=== PATIENT | female | born 1985 ===

== ENCOUNTER 2025-01-16 11:15 | Inpatient (IN) | payer OTHER ==
[~2025-01-16] VITALS: Ht 170.2 cm; Wt 4.1 kg
[2025-01-16 12:25] LABS: HEMATOCRIT 32.7 % (36.0-45.00); HEMOGLOBIN 10.5 g/dL (12.0-15.00); MEAN CELL VOLUME 76.2 fL (80.00-100.00); MEAN CORPUSCULAR HEMOGLOBIN 24.6 pg (27.00-32.0); MEAN CORPUSCULAR HGB CONC 32.2 g/dl (32.0-36.0); PLATELET COUNT 243 K/uL (150-450); RED BLOOD COUNT 4.29 M/uL (4.00-6.00)
[2025-01-16 12:50] LABS: INR 0.94; PARTIAL THROMBOPLASTIN TIME 23.1 SECONDS (22.0-34.0); PROTHROMBIN TIME 10.3 SECONDS (9.0-11.5)
[2025-01-16 12:55] LABS: URINE APPEARANCE Clear; URINE BILIRRUBIN Negative (NEGATIVE); URINE BLOOD Negative; URINE COLOR Yellow; URINE GLUCOSE Negative (NEGATIVE); URINE KETONE Negative (NEGATIVE); URINE LEUKOCYTE Small; URINE NITRATE Negative; URINE PROTEIN Negative (NEGATIVE); URINE UROBILINOGEN 0.2 E.U./dl
[2025-01-16 12:56] LABS: URINE BACTERIA 3335.4 uL (0.0-1933); URINE EPITHELIAL CELLS 82.7 uL (0.0-38.8); URINE RBC 14.1 uL (0.0-20.8); URINE WBC 47.9 uL (0.0-23.2)
[2025-01-16 13:06] LABS: ALBUMIN 2.9 gm/dL (3.4-5.0); BILIRUBIN TOTAL 0.66 mg/dL (0.3-1.2); CALCIUM 9.6 mg/dL (8.5-10.1); CREATININE SERUM 0.68 mg/dL (0.55-1.02); GFR 96.83; GLOBULINA 3.8 G/DL (2.4-3.5); POTASSIUM 4.44 mEq/L (3.5-5.1); TOTAL PROTEIN 6.7 gm/dL (6.4-8.2)
[2025-01-16 13:08] LABS: URINE CAST 0.14 uL (0.0-1.40)
[2025-01-24] MEDS ORDERED: VITATRUE COMBO1 EACH PO (08:06)
[2025-01-24 08:07] VITALS: BP 127/85
[2025-01-24] MEDS ORDERED: CITRIC ACID/SODIUM CITRATE 30 ML BLIST.PACK PO ONE (10:55)
[2025-01-24] MEDS ORDERED: CEFAZOLIN SODIUM 1,000 MG VIAL ONE (10:56)
[2025-01-24] MEDS ORDERED: ERYTHROMYCIN BASE OPHT 1GM EACH TUBE OP ONE (11:36)
[2025-01-24] MEDS ORDERED: OXYTOCIN 10 UNITS/ML VIAL ONE ×2 (11:36→14:09)
[2025-01-24] MEDS ORDERED: KETOROLAC TROMETHAMINE 30 MG VIAL IV SCH (12:21)
[2025-01-24] MEDS ORDERED: RINGERS SOLUTION,LACTATED 1,000 ML IV SCH (12:30)
[2025-01-24] MEDS ORDERED: MORPHINE SULFATE 4 MG/ML CARTRIDGE IV PRN (12:30)
[2025-01-24] MEDS ORDERED: OXYTOCIN 1,000 ML IV ONE (12:30)
[2025-01-24] MEDS ORDERED: MORPHINE SULFATE 4 MG/ML VIAL IV ONE (13:00)
[2025-01-24] MEDS ORDERED: KETOROLAC TROMETHAMINE 30 MG VIAL IV ONE (13:30)
[2025-01-24] MEDS ORDERED: KETOROLAC TROMETHAMINE 30 MG VIAL ONE (13:48)
[2025-01-24 15:11] VITALS: BP 131/87
[2025-01-24] MEDS ORDERED: SIMETHICONE 125 MG CAPSULE PO SCH (17:00)
[2025-01-24] MEDS ORDERED: GABAPENTIN 300 MG CAPSULE PO SCH (17:00)
[2025-01-24] MEDS ORDERED: ACETAMINOPHEN 500 MG GEL..CAP PO SCH (18:00)
[2025-01-24] MEDS ORDERED: ONDANSETRON HCL 2 MG/ML VIAL IV SCH (18:00)
[2025-01-24 20:00] VITALS: BP 124/81
[2025-01-25 01:02] VITALS: BP 119/82
[2025-01-25 06:46] LABS: MEAN CELL VOLUME 74.9 fL (80.00-100.00); MEAN CORPUSCULAR HGB CONC 32.6 g/dl (32.0-36.0); PLATELET COUNT 153 K/uL (150-450); RED BLOOD COUNT 2.98 M/uL (4.00-6.00); RED CELL DISTRIBUTION WIDTH 15.4 % (11.5-14.5)
[2025-01-25 07:17] LABS: MEAN CORPUSCULAR HEMOGLOBIN 24.4 pg (27.00-32.0)
[2025-01-25 07:21] LABS: HEMOGLOBIN 7.3 g/dL (12.0-15.00)
[2025-01-25 07:22] LABS: HEMATOCRIT 22.4 % (36.0-45.00)
[2025-01-25 08:00] VITALS: BP 130/80
[2025-01-25] MEDS ORDERED: OxyCODONE HCL 5 MG TABLET (ROXICODONE) PO PRN (08:00)
[2025-01-25] MEDS ORDERED: KETOROLAC TROMETHAMINE 10 MG TABLET PO SCH (08:00)
[2025-01-25] MEDS ORDERED: DOCUSATE SODIUM 100MG CAP PO SCH (09:00)
[2025-01-25 15:53] VITALS: BP 129/89
[2025-01-25 19:50] VITALS: BP 119/83
[2025-01-26 00:32] VITALS: BP 117/79
[2025-01-26 03:22] LABS: HEMATOCRIT 26.4 % (36.0-45.00); HEMOGLOBIN 8.6 g/dL (12.0-15.00); MEAN CELL VOLUME 79.2 fL (80.00-100.00); MEAN CORPUSCULAR HEMOGLOBIN 25.7 pg (27.00-32.0); MEAN CORPUSCULAR HGB CONC 32.7 g/dl (32.0-36.0); PLATELET COUNT 163 K/uL (150-450); RED BLOOD COUNT 3.34 M/uL (4.00-6.00)
[2025-01-26 08:00] VITALS: BP 126/85
[2025-01-26] MEDS ORDERED: SOD FERRIC GLUC COMPLX/SUCROSE 125 MG in 0.9 % SODIUM CHLORIDE 100 ML IV SCH (09:00)
[2025-01-26] MEDS ORDERED: IRON FUM,PS/FOLIC/BCOMP,C NO.9 1 CAP CAPSULE PO SCH (09:00)
[2025-01-26 16:46] VITALS: BP 129/81
[2025-01-27 00:13] VITALS: BP 100/67
[2025-01-27 09:08] VITALS: BP 127/69
[2025-01-27] MEDS ORDERED: KETO10TA2 PO (09:35)
[2025-01-27] MEDS ORDERED: OXYCODONE HCL5 MG PO (09:36)
== END 2025-01-27 11:09 | disposition home or self-care (01) | DRG 787 ==
LOC: O/R 01-24 06:58 → OB/GYN 01-24 06:58 → LDR 01-24 11:15 → OB/GYN 01-24 12:55 → LDR 01-24 13:15 → OB/GYN 01-24 14:36
PROVIDERS: ADMIT Obstetrics & Gynecology; ATTEND Obstetrics & Gynecology
PROC: 4A1HXCZ Monitoring of Products of Conception, Cardiac Rate, External Approach (ICD-10-PCS; 2025-01-24)
PROC: 10D00Z1 Extraction of Products of Conception, Low, Open Approach (ICD-10-PCS; principal; 2025-01-24 13:15)
PROC: 30233N1 Transfusion of Nonautologous Red Blood Cells into Peripheral Vein, Percutaneous Approach (ICD-10-PCS; 2025-01-25)
DX: O32.1XX0 Maternal care for breech presentation, not applicable or unspecified (principal); O36.63X0 Maternal care for excessive fetal growth, third trimester, not applicable or unspecified; D62 Acute posthemorrhagic anemia; O99.02 Anemia complicating childbirth; Z3A.39 39 weeks gestation of pregnancy; Z37.0 Single live birth

== ENCOUNTER 2025-01-30 16:07 | Inpatient (IN) | payer OTHER ==
[~2025-01-30] VITALS: Ht 170.2 cm; Wt 93.9 kg
[2025-01-30 16:00] VITALS: BP 150/90
[~2025-01-30 16:07] MED LIST: KETO10TA2 PO; MAGNESIUM SULFATE IN WATER 0.04 GM/ML IV.SOLN IV ONE; OXYCODONE HCL5 MG PO; VITATRUE COMBO1 EACH PO
[2025-01-30] MEDS ORDERED: RINGERS SOLUTION,LACTATED 1,000 ML IV SCH (16:15)
[2025-01-30] MEDS ORDERED: MAGNESIUM SULFATE IN WATER 500 ML IV SCH (16:15)
[2025-01-30] MEDS ORDERED: MAGNESIUM SULFATE IN WATER 100 ML IV SCH (16:15)
[2025-01-30] MEDS ORDERED: NIFEDIPINE20 MG PO (16:17)
[2025-01-30 17:10] LABS: HEMATOCRIT 28.9 % (36.0-45.00); HEMOGLOBIN 9.4 g/dL (12.0-15.00); MEAN CELL VOLUME 79.6 fL (80.00-100.00); MEAN CORPUSCULAR HEMOGLOBIN 25.9 pg (27.00-32.0); MEAN CORPUSCULAR HGB CONC 32.6 g/dl (32.0-36.0); PLATELET COUNT 235 K/uL (150-450); RED BLOOD COUNT 3.63 M/uL (4.00-6.00); RED CELL DISTRIBUTION WIDTH 17.5 % (11.5-14.5); URINE APPEARANCE Clear; URINE BILIRRUBIN Negative (NEGATIVE); URINE BLOOD Large; URINE COLOR Yellow; URINE GLUCOSE Negative (NEGATIVE); URINE KETONE Negative (NEGATIVE); URINE LEUKOCYTE Trace; URINE NITRATE Negative; URINE PROTEIN 30 (NEGATIVE); URINE UROBILINOGEN 0.2 E.U./dl
[2025-01-30 17:14] LABS: URINE BACTERIA 97.9 uL (0.0-1933); URINE EPITHELIAL CELLS 14.3 uL (0.0-38.8); URINE RBC 450.7 uL (0.0-20.8); URINE WBC 27.8 uL (0.0-23.2)
[2025-01-30 17:40] LABS: INR 1.05; PARTIAL THROMBOPLASTIN TIME 26.2 SECONDS (22.0-34.0); PROTHROMBIN TIME 11.4 SECONDS (9.0-11.5)
[2025-01-30 17:47] LABS: ALBUMIN 2.8 gm/dL (3.4-5.0); BILIRUBIN TOTAL 0.55 mg/dL (0.3-1.2); CALCIUM 9.2 mg/dL (8.5-10.1); CREATININE SERUM 0.67 mg/dL (0.55-1.02); GFR 98.5; GLOBULINA 3.7 G/DL (2.4-3.5); POTASSIUM 3.94 mEq/L (3.5-5.1); TOTAL PROTEIN 6.5 gm/dL (6.4-8.2)
[2025-01-30 19:30] VITALS: BP 134/89
[2025-01-30 23:20] VITALS: BP 125/81
[2025-01-31] VITALS (7 sets, daily range): BP systolic 119–154; BP diastolic 80–94; O2SAT 99
[2025-01-31 08:55] LABS: HEMATOCRIT 34.3 % (36.0-45.00); HEMOGLOBIN 10.9 g/dL (12.0-15.00); MEAN CELL VOLUME 80.4 fL (80.00-100.00); MEAN CORPUSCULAR HEMOGLOBIN 25.6 pg (27.00-32.0); MEAN CORPUSCULAR HGB CONC 31.9 g/dl (32.0-36.0); PLATELET COUNT 286 K/uL (150-450); RED BLOOD COUNT 4.27 M/uL (4.00-6.00); RED CELL DISTRIBUTION WIDTH 17.7 % (11.5-14.5)
[2025-01-31 09:26] LABS: BILIRUBIN TOTAL 0.5 mg/dL (0.3-1.2); CALCIUM 7.5 mg/dL (8.5-10.1); CREATININE SERUM 0.53 mg/dL (0.55-1.02); GFR 129.1; POTASSIUM 3.86 mEq/L (3.5-5.1)
[2025-01-31] MEDS ORDERED: LABETALOL HCL 200 MG TABLET PO SCH (17:00)
[2025-02-01 06:54] LABS: HEMATOCRIT 31.2 % (36.0-45.00); HEMOGLOBIN 10.1 g/dL (12.0-15.00); MEAN CELL VOLUME 79.6 fL (80.00-100.00); MEAN CORPUSCULAR HEMOGLOBIN 25.8 pg (27.00-32.0); MEAN CORPUSCULAR HGB CONC 32.5 g/dl (32.0-36.0); PLATELET COUNT 283 K/uL (150-450); RED BLOOD COUNT 3.93 M/uL (4.00-6.00)
[2025-02-01 07:23] LABS: ALBUMIN 2.6 gm/dL (3.4-5.0); BILIRUBIN TOTAL 0.46 mg/dL (0.3-1.2); CALCIUM 7.6 mg/dL (8.5-10.1); CREATININE SERUM 0.68 mg/dL (0.55-1.02); GFR 96.83; GLOBULINA 3.4 G/DL (2.4-3.5); POTASSIUM 4.35 mEq/L (3.5-5.1)
[2025-02-01 08:29] VITALS: BP 145/87
[2025-02-01 10:06] VITALS: BP 120/70
== END 2025-02-01 10:10 | disposition home or self-care (01) | DRG 776 ==
LOC: LDR 16:07 → OB/GYN 01-31 17:04
PROVIDERS: ADMIT Obstetrics & Gynecology; ATTEND Obstetrics & Gynecology
DX: O14.95 Unspecified pre-eclampsia, complicating the puerperium (principal)